=== PATIENT | female | born 1985 | race Caucasian/White ===

== ENCOUNTER 2018-09-19 08:06 | Inpatient (IN) | payer MEDICAID ==
[~2018-09-19] VITALS: Ht 175.3 cm; Wt 72.4 kg
[2018-09-19] MEDS ORDERED: LORazepam 2 MG/ML, 1ML IVPush ONE ×2 (08:30→10:00)
[2018-09-19] MEDS ORDERED: THIAMINE 100 MG in SODIUM CHLORIDE 0.9% 50 ML IVPB ONE (08:30)
[2018-09-19] MEDS ORDERED: ONDANSETRON 2MG/ML, 2ML IVPush ONE (08:30)
[2018-09-19] MEDS ORDERED: SODIUM CHLORIDE 0.9% 1,000ML IVBOLUS ONE ×2 (08:30→10:00)
[2018-09-19] MEDS ORDERED: SODIUM CHLORIDE FLUSH 10ML SYR IVF ONE (08:30)
[2018-09-19 08:43] LABS: BASOPHILS % (AUTO) 0 % (0-1); EOSINOPHILS # (AUTO) 0.01 x10^3/uL (0-0.4); EOSINOPHILS % (AUTO) 0 % (1-7); LYMPHOCYTES # (AUTO) 1.65 x10^3/uL (1-3.4); LYMPHOCYTES % (AUTO) 15 % (22-44); MD NO; MEAN CORPUSCULAR HEMOGLOBIN 30.8 pg (27.0-34.8); MEAN CORPUSCULAR HGB CONC 33.2 g/dL (32.4-35.8); MEAN CORPUSCULAR VOLUME 92.6 fL (80-100); MEAN PLATELET VOLUME 7.5 fL (7.4-10.4); MONOCYTES # (AUTO) 0.15 x10^3/uL (0.2-0.8); MONOCYTES % (AUTO) 1 % (2-9); NEUTROPHILS % (AUTO) 84 % (42-75); PLATELET COUNT 278 x10^3/uL (130-400); RED BLOOD COUNT 4.54 x10^6/uL (3.82-5.3); RED CELL DISTRIBUTION WIDTH 15.5 % (9.6-15.2)
[2018-09-19] MEDS ORDERED: ONDANSETRON 2MG/ML, 2ML ONE (08:49)
[2018-09-19] MEDS ORDERED: LORazepam 2 MG/ML, 1ML ONE ×2 (08:50→10:04)
[2018-09-19 08:57] LABS: ALBUMIN 4.2 g/dL (3.4-5.0); ANION GAP 17 mmol/L (5-15); CALCIUM 9.3 mg/dL (8.5-10.1); CHLORIDE 99 mmol/L (98-107)
[2018-09-19 09:01] LABS: ALANINE AMINOTRANSFERASE 34 U/L (12-78); ALKALINE PHOSPHATASE 106 U/L (45-117); CREATININE 0.68 mg/dL (0.55-1.02); TOTAL PROTEIN 7.5 g/dL (6.4-8.2)
--- NOTE | 2018-09-19 10:14 | NUR ---
REMAINS TACHYCARDIC. SHAKING DECREASED. ADDITIONAL DOSE OF ATIVAN GIVEN AND ANOTHER LITER OF FLUIDS INFUSING.
[2018-09-19] MEDS ORDERED: LABETALOL 5MG/ML, 20ML IVPush PRN (11:00)
[2018-09-19] MEDS ORDERED: LACTATED RINGERS 1,000 ML IV SCH (11:00)
[2018-09-19] MEDS ORDERED: ONDANSETRON ODT 4 MG PO PRN (11:00)
[2018-09-19] MEDS ORDERED: POTASSIUM CHLORIDE 20 MEQ, MAGNESIUM SULFATE 1 GM, FOLIC ACID 1 MG, THIAMINE 200 MG, MV... IV SCH (11:00)
[2018-09-19] MEDS ORDERED: CHLORDIAZEPOXIDE 25 MG CAPSULE PO PRN (11:00)
[2018-09-19] MEDS ORDERED: ONDANSETRON 2MG/ML, 2ML IVPush PRN (11:00)
[2018-09-19] MEDS ORDERED: MAGNESIUM SULFATE PMX 2GM/50ML 50 ML IV ONE (11:30)
--- NOTE | 2018-09-19 11:41 | NUR ---
HOSPITALIST AT BEDSIDE
[2018-09-19] MEDS ORDERED: MAGNESIUM SULFATE PMX 2GM/50ML 50 ML ONE (12:50)
[2018-09-19] MEDS ORDERED: CHLORDIAZEPOXIDE 25 MG CAPSULE ONE (12:50)
[2018-09-19] MEDS ORDERED: PANTOPRAZOLE 40 MG IV ONE (12:50)
--- NOTE | 2018-09-19 14:00 | NUR ---
CONTINUE TO MONITOR. HR 110. NO SHAKING NOTED. PT A&O
--- NOTE | 2018-09-19 15:10 | NUR ---
REPORT TO ANNETTA STEPHENS
[2018-09-19] MEDS ORDERED: LORazepam 2 MG/ML, 1ML IV PRN ×4 (19:00)
[2018-09-19] MEDS ORDERED: LORazepam 0.5MG TABLET PO PRN (19:00)
[2018-09-19] MEDS ORDERED: LORazepam 1MG TABLET PO PRN ×4 (19:00)
[2018-09-19 19:31] VITALS: BP 114/71
[2018-09-19 19:32] VITALS: BP 143/88
[2018-09-19] MEDS: LORazepam 2 MG/ML, 1ML IV PRN (19:34)
[2018-09-20] MEDS: LORazepam 2 MG/ML, 1ML IV PRN ×3 (00:23→10:59)
[2018-09-20 03:05] VITALS: BP 114/76
[2018-09-20 05:44] LABS: BASOPHILS # (AUTO) 0.05 x10^3/uL (0-0.1); BASOPHILS % (AUTO) 1 % (0-1); EOSINOPHILS # (AUTO) 0.18 x10^3/uL (0-0.4); EOSINOPHILS % (AUTO) 3 % (1-7); LYMPHOCYTES # (AUTO) 1.78 x10^3/uL (1-3.4); LYMPHOCYTES % (AUTO) 27 % (22-44); MD NO; MEAN CORPUSCULAR HEMOGLOBIN 31.3 pg (27.0-34.8); MEAN CORPUSCULAR HGB CONC 33.3 g/dL (32.4-35.8); MEAN CORPUSCULAR VOLUME 94.1 fL (80-100); MEAN PLATELET VOLUME 7.9 fL (7.4-10.4); MONOCYTES # (AUTO) 0.39 x10^3/uL (0.2-0.8); MONOCYTES % (AUTO) 6 % (2-9); NEUTROPHILS # (AUTO) 4.23 x10^3/uL (1.8-6.8); NEUTROPHILS % (AUTO) 64 % (42-75); PLATELET COUNT 205 x10^3/uL (130-400); RED CELL DISTRIBUTION WIDTH 15.1 % (9.6-15.2)
[2018-09-20 05:47] LABS: CHLORIDE 102 mmol/L (98-107)
[2018-09-20 05:59] LABS: ALANINE AMINOTRANSFERASE 33 U/L (12-78); ANION GAP 7 mmol/L (5-15); BILIRUBIN,TOTAL 1.5 mg/dL (0.2-1.0); CALCIUM 8.5 mg/dL (8.5-10.1); CREATININE 0.57 mg/dL (0.55-1.02)
[2018-09-20 06:00] LABS: ALBUMIN 3.6 g/dL (3.4-5.0); ALKALINE PHOSPHATASE 99 U/L (45-117); TOTAL PROTEIN 6.8 g/dL (6.4-8.2)
[2018-09-20] MEDS ORDERED: PANTOPRAZOLE 40 MG IV IVPush SCH (07:30)
[2018-09-20] MEDS ORDERED: cloniDINE 0.1MG PATCH TD SCH (08:00)
[2018-09-20] MEDS ORDERED: METOPROLOL TARTRATE 25 MG TABLET PO SCH (08:00)
[2018-09-20 08:50] VITALS: BP 125/91
== END 2018-09-20 12:16 | disposition left against medical advice (07) | DRG 433 ==
LOC: ED 09:06 → EDIP 10:43 → 4WST 15:47
PROVIDERS: ADMIT Hospitalist; ATTEND Hospitalist
DX: K70.10 Alcoholic hepatitis without ascites (principal); F10.239 Alcohol dependence with withdrawal, unspecified; E87.1 Hypo-osmolality and hyponatremia; F10.229 Alcohol dependence with intoxication, unspecified; F41.9 Anxiety disorder, unspecified; F17.210 Nicotine dependence, cigarettes, uncomplicated; E83.42 Hypomagnesemia; D72.829 Elevated white blood cell count, unspecified; Z82.3 Family history of stroke; Z82.49 Family history of ischemic heart disease and other diseases of the circulatory system
CPT/HCPCS: 36415; J7121; 80053; 82140; 83690; 83735; 84100; 84703; 85025; 93005; G0378; J2405; J3411; J3475; J3480; C9113; J2060; J7030; J7120

== ENCOUNTER 2018-10-26 01:13 | Emergency (ER) | payer MEDICAID ==
[~2018-10-26] VITALS: Ht 175.3 cm; Wt 70.0 kg
[2018-10-26] MEDS ORDERED: ONDANSETRON 2MG/ML, 2ML ONE (01:36)
[2018-10-26] MEDS ORDERED: PROMETHAZINE 25 MG/ML, 1ML ONE (01:36)
[2018-10-26] MEDS ORDERED: LORazepam 2 MG/ML, 1ML ONE (01:36)
[2018-10-26] MEDS ORDERED: DIAZEPAM 10 MG TABLET PO ONE (02:00)
[2018-10-26] MEDS ORDERED: THIAMINE 100 MG/ML, 2ML IM ONE (02:00)
[2018-10-26] MEDS ORDERED: LORazepam 2 MG/ML, 1ML IVPush ONE (02:00)
[2018-10-26] MEDS ORDERED: SODIUM CHLORIDE 0.9% 1,000ML IVBOLUS ONE (02:00)
[2018-10-26] MEDS ORDERED: SODIUM CHLORIDE FLUSH 10ML SYR IVF ONE (02:00)
[2018-10-26] MEDS ORDERED: PROMETHAZINE 25 MG/ML, 1ML IM ONE (02:00)
[2018-10-26] MEDS ORDERED: ONDANSETRON 2MG/ML, 2ML IVPush ONE (02:00)
[2018-10-26 02:01] LABS: BASOPHILS # (AUTO) 0.29 x10^3/uL (0-0.1); BASOPHILS % (AUTO) 3 % (0-1); EOSINOPHILS # (AUTO) 0.02 x10^3/uL (0-0.4); EOSINOPHILS % (AUTO) 0 % (1-7); LYMPHOCYTES % (AUTO) 24 % (22-44); MD NO; MEAN CORPUSCULAR HEMOGLOBIN 30.7 pg (27.0-34.8); MEAN CORPUSCULAR HGB CONC 32.9 g/dL (32.4-35.8); MEAN CORPUSCULAR VOLUME 93.2 fL (80-100); MEAN PLATELET VOLUME 7.4 fL (7.4-10.4); MONOCYTES # (AUTO) 0.35 x10^3/uL (0.2-0.8); MONOCYTES % (AUTO) 4 % (2-9); NEUTROPHILS # (AUTO) 6.33 x10^3/uL (1.8-6.8); NEUTROPHILS % (AUTO) 69 % (42-75); PLATELET COUNT 258 x10^3/uL (130-400); RED BLOOD COUNT 3.79 x10^6/uL (3.82-5.3)
[2018-10-26] MEDS ORDERED: DIAZEPAM 5 MG TABLET ONE (02:12)
[2018-10-26] MEDS ORDERED: THIAMINE 100 MG/ML, 2ML ONE (02:12)
[2018-10-26 02:14] LABS: ALANINE AMINOTRANSFERASE 32 U/L (12-78); ANION GAP 12 mmol/L (5-15); CALCIUM 7.8 mg/dL (8.5-10.1); CHLORIDE 109 mmol/L (98-107); CREATININE 0.56 mg/dL (0.55-1.02)
[2018-10-26 02:18] LABS: ALKALINE PHOSPHATASE 77 U/L (45-117); BILIRUBIN,TOTAL 0.4 mg/dL (0.2-1.0); TOTAL PROTEIN 6.8 g/dL (6.4-8.2)
--- NOTE | 2018-10-26 02:29 | NUR ---
PT NOW NOTABLY MORE COMFORTABLE. CIWA SCORED INITIALLY 19 AND IS NOW 5. POC DISCUSSED. PT DENIES FURTHER NEEDS AT THIS TIME.
[2018-10-26 03:05] VITALS: BP 106/65
--- NOTE | 2018-10-26 03:06 | NUR ---
BREAK RN: Patient/Caregiver given discharge instructions and they have confirmed that they understand the instructions. Patient ambulatory with steady gait.
== END 2018-10-26 03:07 | disposition home or self-care (01) ==
LOC: ED 01:37
DX: F10.230 Alcohol dependence with withdrawal, uncomplicated (principal); R11.2 Nausea with vomiting, unspecified; F41.9 Anxiety disorder, unspecified; R45.4 Irritability and anger
CPT/HCPCS: 36415; 80053; 80307; 83690; 84703; 85025; 93005; 96361; 96372; 96374; 96375; 99284; J2060; J2405; J2550; J3411; J7030